=== PATIENT | female | born 1940 | race Caucasian/White ===

== ENCOUNTER 2018-02-02 22:04 | Emergency (ER) | payer MEDICARE, BC ==
--- NOTE | 2018-02-02 22:29 | Emergency Department Record ---
History of Present Illness - General Chief Complaint: Abdominal Pain Stated Complaint: BOWEL BLOCKAGE Time Seen by Provider: 02/02/18 22:29 Source: Patient, Family Mode of Arrival: Ambulatory Limitations: No limitations - History of Present Illness Initial Comments: 77 yo female presents with abdominal pain for about one week. She reports waves of nausea and sharp cramps. She denies and vomiting. She reports a decrease in bowel movements with small harder stools. No fevers. She has very little appetite since the onset. She did make an appointment with her doctor but the pain is increasing. She does report a history of bowel surgery about 6 years ago for a "twisted bowel". The surgery was a [facility]. MD Complaint: Abdominal pain -: Week(s) (1) Location: Diffuse Migration to: Periumbilical Severity: Moderate Quality: Aching, Sharp, Stabbing Consistency: Intermittent Improves With: Nothing Worsens With: Eating Context: Other (prior obstrction) Associated Symptoms: Anorexia, Constipation, Nausea - Related Data Home Medications Medication Instructions Recorded Confirmed Last Taken Diltiazem HCl [Cardizem] 30 mg PO TID 02/02/18 02/02/18 02/02/18 Levothyroxine Sodium [Synthroid] 112 mcg PO DAILY 02/02/18 02/02/18 02/02/18 Rivaroxaban [Xarelto] 20 mg PO QPM 02/02/18 02/02/18 02/02/18 Previous Rx's Medication Instructions Recorded Azithromycin [Zithromax] 250 mg PO DAILY #6 tab 02/03/18 Hydrocodone/Acetaminophen [[place] 0.5 - 1 tab PO TID PRN #12 tab 02/03/18 5mg/325mg] Allergies Allergy/AdvReac Type Severity Reaction Status Date / Time metoprolol Allergy Unknown RASH Verified 02/02/18 22:38 around eyes sotalol Allergy Unknown ITCHING, Verified 02/02/18 22:38 jumping heart verapamil AdvReac Unknown CONSTIPATIO Verified 02/02/18 22:38 N Review of Systems Constitutional: Denies: Chills, Fever, Malaise, Weakness, Other Eyes: Denies: Eye discharge, Eye pain, Photophobia, Vision change ENT: Denies: Congestion, Throat pain Respiratory: Denies: Cough, Dyspnea, Hemoptysis, Stridor, Wheezes Cardiovascular: Denies: Chest pain, Palpitations, Syncope Endocrine: Denies: Fatigue Gastrointestinal: Reports: As per HPI, Abdominal pain, Constipation, Nausea. Denies: Diarrhea, Hematemesis, Hematochezia, Melena, Vomiting Genitourinary: Denies: Dysuria, Urgency Musculoskeletal: Denies: Arthralgia, Back pain, Joint swelling, Myalgia Skin: Denies: Bruising, Change in color, Rash Neurological: Denies: Confusion, Headache Psychiatric: Denies: Anxiety Hematological/Lymphatic: Denies: Blood Clots, Easy bleeding, Easy bruising Physical Exam - General General Appearance: Alert, Oriented x3, Cooperative, No acute distress Limitations: No limitations - Head Head exam: Normal inspection - Eye Eye exam: Normal appearance, PERRL. negative: Conjunctival injection, Scleral icterus - ENT ENT exam: Normal exam, Mucous membranes moist Ear exam: Normal external inspection Nasal Exam: Normal inspection Mouth exam: Normal external inspection - Neck Neck exam: Normal inspection, Full ROM. negative: Tenderness - Respiratory Respiratory exam: Normal lung sounds bilaterally. negative: Respiratory distress - Cardiovascular Cardiovascular Exam: Normal rhythm, Tachycardia Peripheral Pulses: 2+: Radial (R), Radial (L) - GI/Abdominal GI/Abdominal exam: Soft, Diminished bowel sounds, Tenderness (mild mid abdomen tenderness on palpation, the abdomen is otherwise very soft at this time), Other (obese abdomen, no obvious mass). negative: Distended, Guarding, Rebound , Rigid - Rectal Rectal exam: Deferred - exam: Deferred - Extremities Extremities exam: Normal inspection, Full ROM, Normal capillary refill. negative: Pedal edema, Tenderness - Back Back exam: Reports: Normal inspection, Full ROM. Denies: Muscle spasm, Rash noted, Tenderness - Neurological Neurological exam: Alert, Normal gait, Oriented X3 - Psychiatric Psychiatric exam: Normal affect, Normal mood - Skin Skin exam: Dry, Intact, Normal color, Warm Course Vital Signs 02/02/18 22:16 Temperature 97.6 F Pulse Rate [ 128 H Pulse Ox Probe] Respiratory 16 Rate Blood Pressure 113/77 [Left Arm] Pulse Ox 98 - Reevaluation(s) Reevaluation #1: The labs were reviewed The WBC count is 13 The Hgb is 9.7 The lactic acid is normal at 1.3 Normal CMP 02/02/18 23:26 02/03/18 00:46 The patient is in CT 04/10/18 01:[address] scan was reviewed The patient has a 11 x 14 16 cm mass, solid, well circumscribed abutting the uterus likely pedunculated uterine fibroid, vs ovarian fibroma or less likely a soft tissue sarcoma. 02/03/18 01:44 The patient is without pain. She is very comfortable. I explained the CT findings of a large likely fibroid She does not currently see a [facility]. She will be referred to call tomorrow for close follow up She does now states about 10 years ago she had fibroid surgery. She does not recall the surgeon and requests a new referral. Incidentally the CT demonstrates a possible R lingular pneumonitis. She has had a mild cough. Zithromax ordered as well. 02/03/18 01:51 The patient information was faxed for a referral to [facility] DR Bhagat. 02/03/18 02:20 Medical Decision Making - Lab Data Result diagrams: 02/02/18 22:45 02/02/18 22:45 Disposition Disposition: Discharge Clinical Impression: Abdominal pain Qualifiers: Abdominal location: unspecified location Qualified Code(s): R10.9 - Unspecified abdominal pain Uterine fibroid Qualifiers: Uterine leiomyoma location: unspecified location Qualified Code(s): D25.9 - Leiomyoma of uterus, unspecified Disposition: Home, Self-Care Condition: (1) Good Instructions: Uterine Fibroids (ED), Abdominal Pain (ED) Additional Instructions: Call tomorrow for an appointment with Dr Bhagat of [facility] Return or be seen if you have a return of pain, fever, or vomiting Use fiber or a stool softener to avoid constipation Take a copy of the CT to your appointment Call your family doctor tomorrow for close follow up as well Prescriptions: Azithromycin [Zithromax] 250 mg PO DAILY #6 tab Hydrocodone/Acetaminophen [[place] 5mg/325mg] 0.5 - 1 tab PO TID PRN #12 tab PRN Reason: Pain - General Referrals: [facility] [DOCTOR [facility]] - Forms: Patient Portal Access Time of Disposition: 01:48 Quality - Quality Measures Quality Measures: N/A - Blood Pressure Screening Does Patient Have Any of the Following: Active Dx of HTN Blood Pressure Classification: Normal BP Reading Systolic Measurement: 105 Diastolic Measurement: 67 Screening for High Blood Pressure: Patient Exclusion, Hx of HTN [[id number]]
[2018-02-02] MEDS ORDERED: ONDANSETRON HCL IV 4 MG/2 ML VIAL IVP ONE (22:36)
[2018-02-02] MEDS ORDERED: ACETAMINOPHEN 1,000 MG/100 ML BTL IVPB ONE (22:36)
[2018-02-02 22:53] LABS: BASO % 0.2 % (0-6); GRAN % 74.8 % (47-80); HEMATOCRIT 32.4 % (35.0-47.0); HEMOGLOBIN 9.7 gm/dl (11.6-16.0); LYMPH % 17.3 % (16-45); MEAN CELL VOLUME 88.3 fl (81-97); MEAN CORPUSCULAR HEMOGLOBIN 26.4 pg (27-33); MEAN CORPUSCULAR HGB CONC 29.9 g/dl (32-36); MEAN PLATELET VOLUME 10.6 fl (7.4-10.4); MONO % 7.7 % (0-9); PLATELET COUNT 376 K/uL (130-400); RED BLOOD COUNT 3.67 M/uL (3.80-5.40); RED CELL DISTRIBUTION WIDTH 15.8 % (11.5-14.5)
[2018-02-02 23:03] LABS: BLOOD UREA NITROGEN 18 mg/dL (8-23); CREATININE 0.8 mg/dL (0.5-0.9); EST GLOMERULAR FILTRATION RATE > 60 mL/min; INR 1.4; PROTHROMBIN TIME (PATIENT) 15.2 SECONDS (9.5-12.1)
[2018-02-02 23:04] LABS: TOTAL PROTEIN 6.7 g/dL (6.6-8.7)
[2018-02-02 23:06] LABS: GLUCOSE,RANDOM 110 mg/dL (74-109)
[2018-02-02 23:08] LABS: ALB/GLOB RATIO 1.3 (1.1-1.8); ALBUMIN 3.8 g/dL (4.0-5.0); ALKALINE PHOSPHATASE 66 U/L (35-104); ALT/SGPT 16 U/L (<33); AST/SGOT 23 U/L (10.0-35.0); LIPASE 28 U/L (13-60)
--- NOTE | 2018-02-03 20:20 | CT SCAN REPORT ---
EXAM: CT SCAN ABDOMEN/PELVIS W CONTRAST HISTORY: ABDOMINAL PAIN IN THE LOWER ABDOMEN AND CONSTIPATION FOR A WEEK. HISTORY OF BOWEL OBSTRUCTION WITH RESECTION IN 2011. TECHNIQUE: Axial CT scan of the abdomen and pelvis performed following the intravenous administration of 100 mL of Omnipaque-300 as the IV contrast. Oral contrast was also utilized. Preliminary report provided by [facility]. COMPARISON: CT abdomen and pelvis 12/28/10. FINDINGS: There is a small right pleural effusion, new since the prior study. Some infiltrate is present in the lingula, which is also new from the prior study and may represent pneumonitis. Minor patchy infiltrate in the right lower lobe with a slightly nodular component is presumably inflammatory in nature as well. Follow-up chest CT after therapy may be useful to be certain these changes resolve in the lung bases. Moderately large hiatal hernia is increased in size from the prior CT. No calcified gallstones are seen within the gallbladder. No definite hepatic, splenic, adrenal, pancreatic, or renal mass identified. There is mild aneurysmal formation of the infrarenal abdominal aorta measuring up to about 3 cm in transverse, by 2.7 cm in AP diameter. Common iliac arteries are of normal caliber. Since the prior exam, a large mass has developed in the pelvis is relatively midline in position but more superiorly extends towards the left side of the upper pelvis. This mass is somewhat heterogeneous in nature. Left ovary is not clearly identified elsewhere in the pelvis but this is probably a large complex , at least partially solid ovarian mass. Malignancy can certainly not be excluded. The mass also abuts the anterior aspect of the uterus but there was no evidence of a uterine leiomyoma at the time of the prior study, although the possibility of a large pedunculated leiomyoma would be in the differential for this mass currently. No calcification typical of a leiomyoma identified. The mass measures approximately 17.3 cm in transverse, by 15.3 cm in AP diameter and has a craniocaudal extent from approximately 17.8 cm. There is probably a small amount of free fluid in the left side of the pelvis adjacent to the large mass. No free intraperitoneal air identified. Post-op changes in the low right inguinal region with the previously seen right inguinal hernia no longer apparent. There are some mildly prominent mesenteric nodes, although these all appear to measure less than 1 cm in maximum short axis. There is degenerative disc disease at the lumbosacral interspace and a mild lumbar levoscoliosis is present. IMPRESSION: 1. NEW LARGE MASS IN THE PELVIS, DETAILED ABOVE, NONSPECIFIC ALTHOUGH PROBABLY OF LEFT OVARIAN ORIGIN. MALIGNANCY CANNOT BE EXCLUDED. LARGE ANTERIOR PEDUNCULATED LEIOMYOMA WOULD BE IN THE DIFFERENTIAL. 2. SMALL AMOUNT OF FREE FLUID LEFT SIDE OF THE PELVIS. 3. SOME MILDLY PROMINENT MESENTERIC NODES, ALTHOUGH NO DEFINITE ADENOPATHY IDENTIFIED. 4. MILD ANEURYSMAL DILATATION OF THE INFRARENAL ABDOMINAL AORTA WITH A MAXIMUM DIAMETER OF ABOUT 3 CM. 5. SMALL RIGHT PLEURAL EFFUSION AND SOME INFILTRATE IN THE LINGULA, WHICH MAY REPRESENT PNEUMONITIS AND ALSO SOME MINOR SLIGHTLY NODULAR INFILTRATE IN THE RIGHT BASE. FOLLOW-UP CHEST CT AFTER THERAPY IS SUGGESTED. 6. MODERATE-SIZED HIATAL HERNIA IS INCREASED IN SIZE FROM 12/28/10. 7. POST-OP RIGHT INGUINAL HERNIA REPAIR SINCE THE PRIOR STUDY. JOB NUMBER: [id number] [facility]
== END 2018-02-03 02:05 | disposition home or self-care (01) ==
LOC: ER 22:04
DX: D25.9 Leiomyoma of uterus, unspecified (principal); R10.33 Periumbilical pain; R11.0 Nausea; K59.00 Constipation, unspecified
CPT/HCPCS: 99284 ×2; 96374; 96375; 83605; 83690; 85025; 85730; 85610; 80053; 74177; Q9967; J2405